=== PATIENT | male | born 1930 | race Caucasian/White ===

== ENCOUNTER → 2016-10-04 | Day surgery (SDC) | payer MEDICARE ==
--- NOTE | 2016-09-13 11:28 | HP ---
ADMITTING HISTORY AND PHYSICAL: DATE OF ADMISSION: 10/04/16 AGE: 86 years. SEX: Male. SURGEON: Tristin Savage MD ADMITTING DIAGNOSIS: Bladder cancer. PLANNED PROCEDURE: Transurethral resection of bladder tumor, right retrograde, and right stent insertion. HISTORY OF PRESENT ILLNESS: Venkata Rubalcava is an 86-year-old gentleman with longstanding smoking history who has a history of superficial bladder cancer. He had undergone transurethral resection of bladder tumor in May 2015 and December 2015. 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 He has been brought in for transurethral resection of the bladder tumor and temporary right stent insertion. PAST MEDICAL HISTORY: Significant for: 1. Superficial bladder cancer. 2. Hypertension. 3. High cholesterol. MEDICATIONS ON ADMISSION: 1. Atenolol 50 mg a day. 2. Zocor 10 mg a day. ALLERGIES: PENICILLIN (hives). SOCIAL HISTORY: Smoking history, he has extensive 60 plus pack year smoking history. He is fairly active and still shovels snow and denies any chest pain. PHYSICAL EXAMINATION GENERAL: Reveals a vigorous-appearing elderly gentleman. VITAL SIGNS: Blood pressure is 122/78, pulse 72 per minute, and oxygen saturation 97% on room air. LUNGS: Clear bilaterally. CARDIOVASCULAR: Regular rate and rhythm. S1, S2. ABDOMEN: Soft without masses. IMPRESSION: An 86-year-old smoker with recurrent bladder tumor. PLANNED PROCEDURE: Transurethral resection of bladder tumor and right stent insertion. CC: Nader Villarreal MD; Tristin Savage MD* [id number]/[facility] #: [id number] [facility]
[~2016-10-04] MED LIST: Acetaminophen TAB* 325 MG ONE; Acetaminophen TAB* 325 MG PO PRN; Buffered Lidocaine 1% SYR 3ML* 3 ML/SYR SYRINGE INTRADERM ONE; Buffered Lidocaine 1% SYR 3ML* 3 ML/SYR SYRINGE ONE; Chloroprocaine 2%* 20 ML VIAL ONE; DiMENhydriNATE IV* 50 MG/ML VIAL IV PUSH PRN; Famotidine IV* 10 MG/ML 2 ML (20 mg) IV ONE; Famotidine IV* 10 MG/ML 2 ML (20 mg) ONE; HYDROmorphone INJ* 1 MG/ML CARPUJECT SYRINGE IV PRN; Iohexol 180 (CONTRAST) 10 ML SDV IV ONE; Ketorolac INJ* 30 MG/ML 1 ML VIAL ONE; Levofloxacin 500 MG IVPREMIX(* 500 MG/100 ML BAG IVPB ONE; Lidocaine 2% JELLY* 6 ML JELLY TOPICAL ONE; Midazolam* 1 MG/ML 2 ML VIAL (2 MG) ONE; Ondansetron INJ* 2 MG/ML VIAL ONE; fentaNYL* 50 MCG/ML 2 ML VIAL (100 MCG VIAL) ONE; mitoMYcin PWD* 40 MG in Sterile Water for Inj* 40 ML IRRIGATION ONE; oxyCODONE/Acetamin 5/325 MG* TAB PO PRN
--- NOTE | 2016-10-04 13:01 | RAD ---
INDICATION: Right retrograde examination with stent placement COMPARISON: None FINDINGS: 10 seconds of fluoroscopy were provided for the urology department. Fluoroscopic spot imaging of the right abdomen were obtained for operative control and show placement of a right ureteral stent in expected position . CPT II Codes: 6045F (fluoro time doc)
[2016-10-04 13:18] VITALS: BP 141/80
--- NOTE | 2016-10-04 14:05 | OP ---
DATE OF OPERATION: 10/04/16 - [facility] DATE OF : 34 SURGEON: Tristin Savage MD ANESTHESIOLOGIST: Yolanda Taylor MD ANESTHESIA: Spinal. PRE-OP DIAGNOSES: 1. Recurrent bladder tumor. 2. Hematuria. POST-OP DIAGNOSES: 1. Recurrent bladder tumor. 2. Hematuria. OPERATIVE PROCEDURE: 1. Transurethral resection and fulguration of bladder tumors (approximately 5- cm aggregate). 2. Right retrograde pyelogram and right stent insertion. INDICATIONS: Venkata Rubalcava is an 86-year-old gentleman with a history of recurrent bladder tumors, some of these appeared to be over the course of the intramural portion of the right ureter. COMPLICATIONS: None. STENT USED: 7-Bulgarian stent, right ureter. OPERATIVE FINDINGS: 1. Normal-appearing urethra. 2. Multiple areas of superficial transitional cell neoplasm on the right side of the bladder neck and trigone with some area suspicious for carcinoma in situ. POSTOPERATIVE CONDITION: Stable. DESCRIPTION OF PROCEDURE: After induction of spinal anesthesia, the patient was placed in dorsal lithotomy position. Sequential compression devices were in place and functioning. Initial cystoscopy revealed normal-appearing urethra , mildly enlarged prostate with an open bladder neck. The bladder was examined. On the right side, the above-mentioned findings were noted. Using a biopsy forceps, excision biopsies were performed and sent for histopathology. Next, a right retrograde pyelogram was performed. There was mild fullness of the right collecting system. No filling defects were noted. A 7-Bulgarian stent was introduced and positioned under fluoroscopy with good proximal and distal positioning obtained. Next, a resectoscope was introduced and all of the visible tumor was resected and/or fulgurated. Hemostasis appeared satisfactory at the end of the procedure and there was no evidence of bladder perforation. A 22-Bulgarian Robb was introduced without difficulty and connected to a drainage bag. The plan is to give him mitomycin-C in the recovery room and then to see him for followup as outpatient. CC: Dr. Nader Villarreal; Dr. Tristin Savage* [id number]/[facility] #: [id number] MTDD
== END | disposition home or self-care (01) ==
LOC: OR 07:18
PROVIDERS: ATTEND Urology
DX: C67.0 Malignant neoplasm of trigone of bladder (principal); R31.9 Hematuria, unspecified; I10 Essential (primary) hypertension; E78.00 Pure hypercholesterolemia, unspecified
CPT/HCPCS: 74420; 88305; A9270-GY; C1876; J1885; J1956; J2250; J2400; J2405; J3010; J9280

== ENCOUNTER 2017-05-18 08:31 | Day surgery (SDC) | payer MEDICARE ==
--- NOTE | 2017-05-07 03:44 | HP ---
CC: Nader Villarreal MD * ADMITTING HISTORY AND PHYSICAL: DATE OF ADMISSION: 05/16/17 ADMITTING DIAGNOSIS: Recurrent bladder cancer. PLANNED PROCEDURE: Transurethral resection of bladder tumors, right stent insertion. SURGEON: Dr. Savage. HISTORY OF PRESENT ILLNESS: Venkata Rubalcava is an 86-year-old chronic smoker with a history of recurrent superficial bladder cancer. He had originally undergone transurethral resection in 2014 for a high-grade tumor involving the lamina propria and subsequent transurethral resection in December 2015 and September 2016. He could not tolerate intravesical therapy due to bladder contractility and urgency, and a recent CT urogram did not reveal any evidence of hydronephrosis or any extravesical involvement. PAST MEDICAL HISTORY: Significant for: 1. Bladder cancer. 2. High cholesterol. 3. Hypertension. MEDICATIONS: 1. Zocor 10 mg a day. 2. Atenolol 50 mg a day. ALLERGIES AND INTOLERANCES: PENICILLIN (hives). SOCIAL HISTORY: He has a lifelong 60 plus pack year smoking history. REVIEW OF SYSTEMS: He is otherwise in excellent health. He is very active physically and denies any chest pain or shortness of breath. There is no history of diabetes mellitus. PHYSICAL EXAMINATION GENERAL: Reveals a pleasant elderly gentleman. VITAL SIGNS: Blood pressure is 120/80, pulse 70 per minute and regular, oxygen saturation 98% on room air. LUNGS: Clear bilaterally. CARDIOVASCULAR: Regular rate and rhythm. S1 and S2. ABDOMEN: Soft without masses. IMPRESSION: An 86-year-old chronic smoker with recurrent bladder cancer. PLANNED PROCEDURE: Transurethral resection of bladder tumor and right stent insertion. [id number]/[facility] #: [id number] [facility]
[~2017-05-18 08:31] MED LIST changes: -Acetaminophen TAB* 325 MG ONE; -Acetaminophen TAB* 325 MG PO PRN; +Buffered Lidocaine 0.9% SYRIN* 5 ML/SYR SYRINGE INTRADERM ONE; +Buffered Lidocaine 0.9% SYRIN* 5 ML/SYR SYRINGE ONE; -Buffered Lidocaine 1% SYR 3ML* 3 ML/SYR SYRINGE INTRADERM ONE; -Buffered Lidocaine 1% SYR 3ML* 3 ML/SYR SYRINGE ONE; -Chloroprocaine 2%* 20 ML VIAL ONE; -DiMENhydriNATE IV* 50 MG/ML VIAL IV PUSH PRN; -Famotidine IV* 10 MG/ML 2 ML (20 mg) IV ONE; -Famotidine IV* 10 MG/ML 2 ML (20 mg) ONE; -HYDROmorphone INJ* 1 MG/ML CARPUJECT SYRINGE IV PRN; -Iohexol 180 (CONTRAST) 10 ML SDV IV ONE; -Ketorolac INJ* 30 MG/ML 1 ML VIAL ONE; -Lidocaine 2% JELLY* 6 ML JELLY TOPICAL ONE; -Midazolam* 1 MG/ML 2 ML VIAL (2 MG) ONE; -Ondansetron INJ* 2 MG/ML VIAL ONE; -fentaNYL* 50 MCG/ML 2 ML VIAL (100 MCG VIAL) ONE; -mitoMYcin PWD* 40 MG in Sterile Water for Inj* 40 ML IRRIGATION ONE; -oxyCODONE/Acetamin 5/325 MG* TAB PO PRN
[2017-05-18] MEDS ORDERED: Iohexol 180 (CONTRAST) 10 ML SDV IV ONE (09:52)
[2017-05-18] MEDS ORDERED: fentaNYL* 50 MCG/ML 2 ML VIAL (100 MCG VIAL) ONE (10:16)
[2017-05-18] MEDS ORDERED: Midazolam* 1 MG/ML 2 ML VIAL (2 MG) ONE (10:16)
[2017-05-18] MEDS ORDERED: Chloroprocaine 2%* 20 ML VIAL ONE (10:19)
[2017-05-18] MEDS ORDERED: fentaNYL* 50 MCG/ML 2 ML VIAL (100 MCG VIAL) IV PRN (10:40)
[2017-05-18] MEDS ORDERED: Furosemide IV* 10 MG/ML 2 ML VIAL (20 MG) ONE (11:10)
[2017-05-18] MEDS ORDERED: Lidocaine 2% JELLY* 6 ML JELLY TOPICAL ONE (11:46)
[2017-05-18 12:38] VITALS: BP 145/70
--- NOTE | 2017-05-18 12:47 | RAD ---
INDICATION: Stent placement. COMPARISON: Comparison is made with a prior CT urogram from May 03, 2017. TECHNIQUE: 9 seconds of intermittent fluoroscopic guidance were provided and 6 spot films of the abdomen were centered on the right side. FINDINGS: There is partial opacification of the right renal collecting system. Subsequently there is placement of a double-J stent catheter on the right side which demonstrates normal course. IMPRESSION: INTRAOPERATIVE CONTROL FILMS. CPT II Codes: 6045F
--- NOTE | 2017-05-19 05:07 | OP ---
CC: Nader Villarreal MD OPERATIVE SUMMARY: DATE OF OPERATION: 05/18/17 DATE OF : 34 SURGEON: Tristin Savage MD ANESTHESIA: Spinal. ANESTHESIOLOGIST: Dr. Levi. PRE-OP DIAGNOSES: 1. Hematuria. 2. Bladder cancer. POST-OP DIAGNOSES: 1. Hematuria. 2. Bladder cancer. SURGICAL PROCEDURES: 1. Cystoscopy, transurethral resection, and fulguration of bladder tumors (aggregate 5 to 6 cm). 2. Right retrograde pyelogram and right stent insertion. COMPLICATIONS: None. POSTOPERATIVE CONDITION: Stable. OPERATIVE FINDINGS: Multiple recurrent bladder tumors (appearance consistent with superficial trans itional cell carcinoma). INDICATIONS: Venkata Rubalcava is an 86-year-old chronic smoker with recurrent superficial bladder c ancer. DESCRIPTION OF PROCEDURE: After induction of spinal anesthesia, the patient was placed in dorsal li thotomy position. Sequential compression devices were in place and functioning. Initial cystoscopy revealed normal appearing urethra, mild regrowth of the left lobe of the prostate. The bladder was examined. The right orifice is patulous due to prior stent insertions and resections. There were recurrent superficial appearing tumors noted adjacent to the right orifice and extending towards the middle of the trigone. There was also a small tumor in the left side of the bladder neck. Right retrograde pyelogram revealed mild fullness of the right collecting system and a 7-Albanian sten t was introduced in position under fluoroscopy with good proximal and distal positioning obtained. Next, attention was directed to the bladder tumors. Transurethral resection and fulguration of the bladder tumors was carried out down to muscle. Hemostasis was secured using the coagulating current . At the end of the procedure, there was no remaining visible tumor and hemostasis appeared satisfa ctory. There was no evidence of bladder perforation. A 22-Albanian Robb was introduced without diff iculty and connected to a drainage bag. The patient tolerated the procedure satisfactorily and was transferred back to the recovery area in stable condition. [id number]/[facility] #: [id number]
== END 2017-05-18 13:12 | disposition home or self-care (01) ==
LOC: OR 08:31
PROVIDERS: ATTEND Urology
DX: C67.9 Malignant neoplasm of bladder, unspecified (principal); R31.9 Hematuria, unspecified; Z96.0 Presence of urogenital implants; I10 Essential (primary) hypertension; E78.00 Pure hypercholesterolemia, unspecified; F17.200 Nicotine dependence, unspecified, uncomplicated; Z88.0 Allergy status to penicillin
CPT/HCPCS: 74420; 88305; C1876; J1940; J1956; J2250; J2400; J3010

== ENCOUNTER 2017-10-26 06:03 | Day surgery (SDC) | payer MEDICARE ==
--- NOTE | 2017-10-16 09:35 | HP ---
CC: Dr. Nader Villarreal * ADMITTING HISTORY AND PHYSICAL: DATE OF ADMISSION: 10/26/17 ADMITTING DIAGNOSIS: Recurrent bladder cancer. PLANNED PROCEDURE: Transurethral resection of bladder tumors, possible bilateral stent insertion. SURGEON: Dr. Savage. ADMITTING HISTORY OF PRESENT ILLNESS: Venkata Rubalcava is an 87-year-old gentleman with a longstanding smoking history and a history of recurrent high- grade bladder cancer. He had originally been evaluated in August 2015 and at that time had tumor involving the lamina propria, but not muscle invasion. He has had multiple recurrent tumors and cannot tolerate intravesical BCG treatments and recent cystoscopy had revealed extensive recurrent transitional cell tumors involving the anterior bladder wall and also bladder neck extending into the prostatic urethra and the entire trigone. PAST MEDICAL HISTORY: Significant for: 1. Recurrent high-grade bladder cancer with lamina propria involvement, but no muscle invasion. 2. Hypertension. 3. High cholesterol. MEDICATIONS ON ADMISSION: 1. Atenolol 50 mg daily. 2. Zocor 10 mg daily. ALLERGIES: PENICILLIN (hives). SOCIAL HISTORY: Smoking history, he has a longstanding chronic smoking history of more than 60 years. I have had several discussions with him regarding the continued risk of smoking and bladder cancer on several occasions. REVIEW OF SYSTEMS: He is otherwise in exceptionally good health and looks much younger than his stated age. He is very active and does a lot of strenuous physical activity without any chest pain or shortness of breath. PHYSICAL EXAMINATION GENERAL: Reveals a healthy appearing elderly gentleman. VITAL SIGNS: Blood pressure is 130/80, pulse 70 per minute, oxygen saturation 93% on room air. LUNGS: Clear bilaterally. CARDIOVASCULAR: Regular rate and rhythm. S1, S2. ABDOMEN: Soft without masses. IMPRESSION: This 87-year-old chronic smoker with recurrent high-grade multiple bladder tumors. PLANNED PROCEDURE: Transurethral resection of bladder tumors and possible bilateral stent insertion. [id number]/[facility] #: [id number] [facility]
[~2017-10-26 06:03] MED LIST changes: -Buffered Lidocaine 0.9% SYRIN* 5 ML/SYR SYRINGE ONE; -Levofloxacin 500 MG IVPREMIX(* 500 MG/100 ML BAG IVPB ONE
[2017-10-26] MEDS ORDERED: Levofloxacin 500 MG IVPREMIX(* 500 MG/100 ML BAG IVPB ONE (06:41)
[2017-10-26] MEDS ORDERED: Phenazopyridine TAB* 100 MG ONE (06:41)
[2017-10-26] MEDS ORDERED: Buffered Lidocaine 0.9% SYRIN* 5 ML/SYR SYRINGE ONE (06:41)
[2017-10-26] MEDS ORDERED: Iohexol 180 (CONTRAST) 10 ML SDV IV ONE (06:51)
[2017-10-26] MEDS ORDERED: Atenolol TAB* 25 MG PO ONE (07:00)
[2017-10-26] MEDS ORDERED: fentaNYL* 50 MCG/ML 2 ML VIAL (100 MCG VIAL) ONE (07:56)
[2017-10-26] MEDS ORDERED: Midazolam* 1 MG/ML 2 ML VIAL (2 MG) ONE (07:56)
[2017-10-26] MEDS ORDERED: fentaNYL* 50 MCG/ML 2 ML VIAL (100 MCG VIAL) IV PRN (08:27)
[2017-10-26] MEDS ORDERED: oxyCODONE TAB* 5 MG TAB PO PRN (08:27)
[2017-10-26] MEDS ORDERED: Acetaminophen TAB* 325 MG PO PRN (08:27)
[2017-10-26] MEDS ORDERED: Naloxone* 0.4 MG/ML 1 ML VIAL IV PRN (08:27)
[2017-10-26] MEDS ORDERED: Furosemide IV* 10 MG/ML 2 ML VIAL (20 MG) ONE (08:52)
[2017-10-26] MEDS ORDERED: mitoMYcin PWD* 40 MG in Sterile Water for Inj* 40 ML IRRIGATION ONE (10:00)
--- NOTE | 2017-10-26 11:11 | RAD ---
INDICATION: LEFT retrograde pyelogram and stent placement. COMPARISON: May 03, 2017 CT. TECHNIQUE: 4 seconds fluoroscopy. FINDINGS: LEFT retrograde pyelogram is remarkable for moderate calyceal blunting. LEFT ureteral stent placed with decompression of the collecting system. Small volume of contrast extravasation at the level of the renal pelvis and upper pole calyces noted. IMPRESSION: Procedural fluoroscopy. CPT II Codes: 6045F
[2017-10-26 12:33] VITALS: BP 127/62
--- NOTE | 2017-10-27 06:49 | OP ---
CC: Dr. Nader Villarreal * DATE OF OPERATION: 10/26/17 - [facility] DATE OF : 34 SURGEON: Tristin Savage MD ANESTHESIOLOGIST: Dr. Levi. ANESTHESIA: Spinal. PRE-OP DIAGNOSES: 1. Recurrent bladder cancer. 2. Hematuria. POST-OP DIAGNOSES: 1. Recurrent bladder cancer. 2. Hematuria. OPERATIVE PROCEDURE: 1. Cystoscopy, transurethral resection and fulguration of bladder tumors (5 to 6 cm). 2. Left retrograde and left stent insertion. COMPLICATIONS: None. BLOOD LOSS: Less than 25 cc. INDICATIONS: Venkata Rubalcava is an 87-year-old chronic smoker with long- standing history of recurrent superficial bladder cancer. OPERATIVE FINDINGS: Few small recurrent bladder tumors noted, distributed throughout floor of bladder, one of them close to the location of the left orifice without obstructing the orifice. POSTOPERATIVE CONDITION: Stable. DESCRIPTION OF PROCEDURE: After induction of spinal anesthesia, the patient was placed in dorsal lithotomy position. Sequential compression devices were in place and functioning. Initial cystoscopy revealed a normal-appearing urethra (there was a small healed false passage in the mid bulbar urethra). The patient is status post transurethral resection of the prostate and the prostatic fossa is widely open. The bladder was examined. The right orifice is patulous status post prior resections in that area. The left orifice initially could not be visualized. There were a couple of papillary tumors in the mid trigone and close to the left side and I suspect one of them was covering the left orifice without obstructing it. There was no evidence of any muscle invasive appearing tumor. Using the resectoscope, all of the visible tumors were carefully resected down to muscle. After the resection, I could visualize the left orifice and it was intubated with a guidewire. Retrograde pyelogram did not reveal any obstruction. There was initially a thought of small filling defect in the upper ureter, but after injection of more contrast, this filled up, some extravasation was noted because of the repeated injection of contrast. A 6- [place]an stent was introduced and positioned under fluoroscopy with good proximal and distal positioning obtained. At the end of the procedure, there were no remaining visible tumors and hemostasis appeared satisfactory. A 20-[place] Verdean Robb was placed without difficulty and connected to a drainage bag. The patient tolerated the procedure satisfactorily and was transferred back to recovery area in stable condition. [id number]/[facility] #: [id number] MTDD
== END 2017-10-26 13:47 | disposition home or self-care (01) ==
LOC: OR 06:03
PROVIDERS: ATTEND Urology
DX: C67.8 Malignant neoplasm of overlapping sites of bladder (principal); R31.9 Hematuria, unspecified; I10 Essential (primary) hypertension; E78.00 Pure hypercholesterolemia, unspecified; F17.200 Nicotine dependence, unspecified, uncomplicated
CPT/HCPCS: 74420; 88305; A9270-GY; C1876; J1940; J1956; J2250; J3010; J9280